=== PATIENT | female | born 1985 | race Two or more races ===

== ENCOUNTER 2023-08-20 09:15 | Inpatient (IN) | payer OTHER ==
[~2023-08-20] VITALS: Ht 149.9 cm; Wt 68.0 kg
[2023-08-20 13:29] LABS: HEMATOCRIT 36.2 % (36.0-45.00); HEMOGLOBIN 11.8 g/dL (12.0-15.00); MEAN CELL VOLUME 72.2 fL (80.00-100.00); MEAN CORPUSCULAR HEMOGLOBIN 23.6 pg (27.00-32.0); MEAN CORPUSCULAR HGB CONC 32.7 g/dl (32.0-36.0); PLATELET COUNT 309 K/uL (150-450); RED BLOOD COUNT 5.01 M/uL (4.00-6.00); RED CELL DISTRIBUTION WIDTH 16.1 % (11.5-14.5)
[2023-08-20 13:30] LABS: PH,URINE 6.5 (5.0-8.0); URINE APPEARANCE Clear; URINE BILIRRUBIN Negative (NEGATIVE); URINE BLOOD Large; URINE COLOR Yellow; URINE GLUCOSE Negative (NEGATIVE); URINE LEUKOCYTE Negative; URINE NITRATE Negative; URINE PROTEIN Negative (NEGATIVE); URINE UROBILINOGEN 0.2 E.U./dl
[2023-08-20 13:33] LABS: ALBUMIN 3.6 gm/dL (3.4-5.0); BILIRUBIN TOTAL 0.4 mg/dL (0.3-1.2); CREATININE SERUM 0.55 mg/dL (0.55-1.02); GFR 125.78; GLOBULINA 3.8 G/DL (2.4-3.5); POTASSIUM 3.82 mEq/L (3.5-5.1); TOTAL PROTEIN 7.4 gm/dL (6.4-8.2)
[2023-08-20 13:35] LABS: URINE EPITHELIAL CELLS 9.7 uL (0.0-38.8); URINE RBC 325.2 uL (0.0-20.8); URINE WBC 16.5 uL (0.0-23.2)
[2023-08-20 13:38] LABS: INR 1.01; PARTIAL THROMBOPLASTIN TIME 29.4 SECONDS (22.0-34.0); PROTHROMBIN TIME 10.6 SECONDS (9.0-11.5)
[2023-08-20 13:45] LABS: URINE BACTERIA > 9821.5 uL (0.0-1933)
[2023-08-28] MEDS ORDERED: POVIDONE-IODINE 118 ML BOTT TOP ONE (14:15)
[2023-08-28] MEDS ORDERED: VISTASEAL DUAL APPICATOR 1 EACH APPL TOP ONE (14:15)
[2023-08-28] MEDS ORDERED: METRONIDAZOLE/SODIUM CHLORIDE 500 MG/100 ML PIGGYBACK IV ONE (14:15)
[2023-08-28] MEDS ORDERED: LIDOCAINE HCL 1%/EPINEPHRINE 20ML VIAL IJ ONE (14:15)
[2023-08-28] MEDS ORDERED: THROMBIN,HU/FIBRINOGEN/CALCIUM 10 ML SYRINGE TOP ONE (14:15)
[2023-08-28] MEDS ORDERED: BUPIVACAINE HCL 30 ML VIAL IJ ONE (14:15)
[2023-08-28] MEDS ORDERED: CEFTRIAXONE SODIUM 2,000 MG VIAL IV ONE (14:15)
[2023-08-28] MEDS ORDERED: ENALAPRILAT DIHYDRATE 1.25 MG/ML VIAL IV ONE (16:45)
[2023-08-28] MEDS ORDERED: hydrALAZINE HCL 20 MG VIAL IV ONE (16:45)
[2023-08-28] MEDS ORDERED: LACTULOSE 20 G/30 ML BLIST.PACK PO SCH (21:12)
[2023-08-28] MEDS ORDERED: POLYETHYLENE GLYCOL 3350 17 GM BLIST.PACK PO SCH (21:12)
[2023-08-28] MEDS ORDERED: FAMOTIDINE/PF 20 MG/2 ML VIAL IV PUSH SCH (21:12)
[2023-08-28] MEDS ORDERED: HYOSCYAMINE SULFATE 0.125 MG TAB.SUBL SL SCH (21:12)
[2023-08-28] MEDS ORDERED: GABAPENTIN 300 MG CAPSULE PO SCH (21:13)
[2023-08-28] MEDS ORDERED: ACETAMINOPHEN 500 MG GEL..CAP PO SCH (21:13)
[2023-08-28] MEDS ORDERED: ONDANSETRON HCL 2 MG/ML VIAL IV PRN (21:15)
[2023-08-28] MEDS ORDERED: DEXTROSE 50 % IN WATER 0.5 G/ML DISP.SYRIN IV PRN (21:15)
[2023-08-28] MEDS ORDERED: RINGERS SOLUTION,LACTATED 1,000 ML IV SCH (21:15)
[2023-08-28] MEDS ORDERED: OxyCODONE HCL 5 MG TABLET (ROXICODONE) PO PRN (21:15)
[2023-08-28] MEDS ORDERED: MORPHINE SULFATE 4 MG/ML CARTRIDGE IV PRN (21:15)
[2023-08-28 23:10] LABS: HEMOGLOBIN 11.4 g/dL (12.0-15.00); MEAN CELL VOLUME 73.5 fL (80.00-100.00); MEAN CORPUSCULAR HEMOGLOBIN 23.9 pg (27.00-32.0); MEAN CORPUSCULAR HGB CONC 32.7 g/dl (32.0-36.0); PLATELET COUNT 269 K/uL (150-450); RED BLOOD COUNT 4.76 M/uL (4.00-6.00); RED CELL DISTRIBUTION WIDTH 15.9 % (11.5-14.5)
[2023-08-28 23:30] LABS: ALBUMIN 3.3 gm/dL (3.4-5.0); CALCIUM 8.3 mg/dL (8.5-10.1); CREATININE SERUM 0.88 mg/dL (0.55-1.02); GFR 73.12; MAGNESIUM 1.6 mg/dL (1.8-2.4); PHOSPHOROUS 4.4 mg/dL (2.5-4.9); POTASSIUM 3.97 mEq/L (3.5-5.1)
[2023-08-29 08:01] LABS: ALBUMIN 3.1 gm/dL (3.4-5.0); CALCIUM 8.2 mg/dL (8.5-10.1); CREATININE SERUM 0.56 mg/dL (0.55-1.02); GFR 123.19; MAGNESIUM 1.6 mg/dL (1.8-2.4)
[2023-08-29] MEDS ORDERED: MAGNESIUM SULFATE 50% 1,000 MG/2 ML VIAL IV STA (10:04)
[2023-08-29] MEDS ORDERED: MAGNESIUM SULFATE IN WATER 2 GM/50 ML PIGGYBAG IV STA ×2 (12:06→12:09)
[2023-08-29] MEDS ORDERED: SIMETHICONE 125 MG CAPSULE PO SCH (13:00)
[2023-08-30 08:43] LABS: HEMATOCRIT 28.9 % (36.0-45.00); HEMOGLOBIN 9.4 g/dL (12.0-15.00); MEAN CELL VOLUME 72.2 fL (80.00-100.00); MEAN CORPUSCULAR HEMOGLOBIN 23.5 pg (27.00-32.0); MEAN CORPUSCULAR HGB CONC 32.5 g/dl (32.0-36.0); PLATELET COUNT 211 K/uL (150-450); RED BLOOD COUNT 4.01 M/uL (4.00-6.00); RED CELL DISTRIBUTION WIDTH 16.2 % (11.5-14.5)
[2023-08-30] MEDS ORDERED: SOD FERRIC GLUC COMPLX/SUCROSE 62.5 MG/5 ML AMPUL IV SCH (09:26)
[2023-08-30] MEDS ORDERED: Cyanocobalamin/Mecobalamin 1 TAB.SL SL SCH (09:28)
[2023-08-30] MEDS ORDERED: FOLIC ACID 1 MG TABLET PO SCH (09:30)
[2023-08-30] MEDS ORDERED: LACTOBACILLUS ACIDOPHILUS 1 CAP CAP PO SCH (12:00)
[2023-08-30] MEDS ORDERED: ENOXAPARIN SODIUM 40 MG/0.4 ML SYRINGE SUBCUTANEO SCH (17:00)
[2023-08-31] MEDS ORDERED: ENOXAPARIN SODIUM 40 MG/0.4 ML SYRINGE SUBCUTANEO SCH (09:00)
[2023-08-31 12:15] LABS: HEMATOCRIT 26.5 % (36.0-45.00); MEAN CELL VOLUME 72.3 fL (80.00-100.00); MEAN CORPUSCULAR HGB CONC 32.6 g/dl (32.0-36.0); PLATELET COUNT 203 K/uL (150-450); RED BLOOD COUNT 3.67 M/uL (4.00-6.00)
[2023-08-31 12:17] LABS: MEAN CORPUSCULAR HEMOGLOBIN 23.4 pg (27.00-32.0)
[2023-08-31 12:18] LABS: HEMOGLOBIN 8.6 g/dL (12.0-15.00)
[2023-08-31 12:46] LABS: MAGNESIUM 1.8 mg/dL (1.8-2.4); PHOSPHOROUS 2.7 mg/dL (2.5-4.9)
[2023-08-31 13:08] LABS: CALCIUM 8.1 mg/dL (8.5-10.1); CREATININE SERUM 0.44 mg/dL (0.55-1.02); GFR 162.72; POTASSIUM 3.33 mEq/L (3.5-5.1)
[2023-08-31] MEDS ORDERED: POTASSIUM CHLORIDE IN WATER 100 ML IV ONE (20:45)
[2023-09-01 08:01] LABS: HEMATOCRIT 26.1 % (36.0-45.00); MEAN CELL VOLUME 73.5 fL (80.00-100.00); MEAN CORPUSCULAR HGB CONC 32.9 g/dl (32.0-36.0); PLATELET COUNT 226 K/uL (150-450); RED BLOOD COUNT 3.55 M/uL (4.00-6.00); RED CELL DISTRIBUTION WIDTH 15.7 % (11.5-14.5)
[2023-09-01 08:04] LABS: HEMOGLOBIN 8.6 g/dL (12.0-15.00); MEAN CORPUSCULAR HEMOGLOBIN 24.2 pg (27.00-32.0)
[2023-09-01] MEDS ORDERED: NEURONTIN300 MG PO (10:56)
[2023-09-01] MEDS ORDERED: LEVSIN/SL0.125 MG SL (10:57)
[2023-09-01] MEDS ORDERED: GAS RELIEF125 MG PO (10:57)
[2023-09-01] MEDS ORDERED: INTEGRA CAPSUL1 EACH PO (10:58)
== END 2023-09-01 11:17 | disposition home or self-care (01) | DRG 742 ==
LOC: O/R 08-28 07:42 → OB/GYN 08-28 10:00
PROVIDERS: Internal Medicine; Surgery; Urology; ADMIT Obstetrics & Gynecology Gynecology; ATTEND Obstetrics & Gynecology Gynecology
PROC: 0DTN4ZZ Resection of Sigmoid Colon, Percutaneous Endoscopic Approach (ICD-10-PCS; 2023-08-28)
PROC: 0DBP4ZZ Excision of Rectum, Percutaneous Endoscopic Approach (ICD-10-PCS; 2023-08-28)
PROC: 0DNP4ZZ Release Rectum, Percutaneous Endoscopic Approach (ICD-10-PCS; 2023-08-28)
PROC: 0DNN4ZZ Release Sigmoid Colon, Percutaneous Endoscopic Approach (ICD-10-PCS; 2023-08-28)
PROC: 0UN04ZZ Release Right Ovary, Percutaneous Endoscopic Approach (ICD-10-PCS; 2023-08-28)
PROC: 0DNW4ZZ Release Peritoneum, Percutaneous Endoscopic Approach (ICD-10-PCS; 2023-08-28)
PROC: 0TNB4ZZ Release Bladder, Percutaneous Endoscopic Approach (ICD-10-PCS; 2023-08-28)
PROC: 0DTJ4ZZ Resection of Appendix, Percutaneous Endoscopic Approach (ICD-10-PCS; 2023-08-28)
PROC: 0WBH4ZZ Excision of Retroperitoneum, Percutaneous Endoscopic Approach (ICD-10-PCS; 2023-08-28)
PROC: 0DJD8ZZ Inspection of Lower Intestinal Tract, Via Natural or Artificial Opening Endoscopic (ICD-10-PCS; 2023-08-28)
PROC: 0T788DZ Dilation of Bilateral Ureters with Intraluminal Device, Via Natural or Artificial Opening Endoscopic (ICD-10-PCS; 2023-08-28)
PROC: 0UT94ZZ Resection of Uterus, Percutaneous Endoscopic Approach (ICD-10-PCS; principal; 2023-08-28 11:15)
PROC: 0UT74ZZ Resection of Bilateral Fallopian Tubes, Percutaneous Endoscopic Approach (ICD-10-PCS; 2023-08-28 11:15)
PROC: 0UT24ZZ Resection of Bilateral Ovaries, Percutaneous Endoscopic Approach (ICD-10-PCS; 2023-08-28 11:15)
PROC: B54NZZZ Ultrasonography of Left Upper Extremity Veins (ICD-10-PCS; 2023-08-30)
DX: D25.1 Intramural leiomyoma of uterus (principal); D62 Acute posthemorrhagic anemia; G97.82 Other postprocedural complications and disorders of nervous system; N80.A62 Endometriosis of left ureter, unspecified depth; N80.03 Adenomyosis of the uterus; N80.519 Endometriosis of the rectum, unspecified depth; N80.529 Endometriosis of the sigmoid colon, unspecified depth; N80.30 Endometriosis of pelvic peritoneum, unspecified; N80.203 Endometriosis of bilateral fallopian tubes, unspecified depth; N80.102 Endometriosis of left ovary, unspecified depth; N72 Inflammatory disease of cervix uteri; N83.01 Follicular cyst of right ovary; N83.11 Corpus luteum cyst of right ovary; K66.0 Peritoneal adhesions (postprocedural) (postinfection); Z20.822 Contact with and (suspected) exposure to COVID-19

== ENCOUNTER 2023-09-05 20:18 | Inpatient (IN) | payer OTHER ==
[~2023-09-05] VITALS: Ht 149.9 cm; Wt 63.5 kg
[~2023-09-05 20:18] MED LIST: GAS RELIEF125 MG PO; INTEGRA CAPSUL1 EACH PO; LEVSIN/SL0.125 MG SL; NEURONTIN300 MG PO
--- NOTE | 2023-09-05 21:58 | NUR ---
SE RECIBE PACIENTE ALERTA Y ORIENTADA X3. LA MISMA REFIERE LUEGO DE OPERACION DE RESECCION DE INTESTINO HALEY Y GRUESO, HISTERECTOMIA, SALPINGECTOMIA, REMOCION DE MASAS ENDOMETRIALES Y REMOCION DE APENDICE, COMENZAR VOMITOS X3, FIEBRE, ESCALOSFRIOS, SUDORACION, Y REFLUJO. PACIENTE OPERADA POR DRA. PRAVEENA MELTON Y DR. MADAI AYON EL 3 . SE MIDEN S/V Y SE UBICA.
[2023-09-05] MEDS ORDERED: 0.9 % SODIUM CHLORIDE 1,000 ML IV STA (22:18)
[2023-09-05] MEDS ORDERED: FAMOTIDINE/PF 20 MG/2 ML VIAL IV ONE (22:30)
[2023-09-05] MEDS ORDERED: PROMETHAZINE HCL 25 MG/ML AMPUL IV ONE (22:30)
[2023-09-05] MEDS ORDERED: MEPERIDINE HCL/PF 50 MG/ML VIAL IV ONE (22:30)
[2023-09-06 00:16] LABS: ERYTHROCYTE SEDIMENTATION RATE 51 mm/hr
--- NOTE | 2023-09-06 00:16 | NUR ---
PTE EVALUADA POR DRA BRYAN. SE ORIENTA A PTE SOBRE ORDENES MEDICAS. SE COLECTAN MUESTRAS DE LABORATORIO. SE CANALIZA Y SE ADMINISTRAN MEDICAMENTOS MAYO ORDEN MEDICA. SE NOTIFICA CT PENDIENTE.
[2023-09-06 00:19] LABS: HEMATOCRIT 32.8 % (36.0-45.00); HEMOGLOBIN 10.7 g/dL (12.0-15.00); MEAN CELL VOLUME 71.9 fL (80.00-100.00); MEAN CORPUSCULAR HEMOGLOBIN 23.6 pg (27.00-32.0); MEAN CORPUSCULAR HGB CONC 32.8 g/dl (32.0-36.0); PLATELET COUNT 452 K/uL (150-450); RED BLOOD COUNT 4.56 M/uL (4.00-6.00); RED CELL DISTRIBUTION WIDTH 16.1 % (11.5-14.5)
[2023-09-06 00:59] LABS: ALBUMIN 3.5 gm/dL (3.4-5.0); BILIRUBIN TOTAL 0.25 mg/dL (0.3-1.2); CREATININE SERUM 0.64 mg/dL (0.55-1.02); GFR 105.6; GLOBULINA 4.1 G/DL (2.4-3.5); POTASSIUM 4.18 mEq/L (3.5-5.1); TOTAL PROTEIN 7.6 gm/dL (6.4-8.2)
[2023-09-06 01:23] LABS: C-REACTIVE PROTEIN 2.19 MG/DL (0.00-0.29)
[2023-09-06] MEDS ORDERED: OxyCODONE HCL/APAP UD (PERCOCET) PO STA (07:22)
--- NOTE | 2023-09-06 07:43 | NUR ---
PTE ALERTA Y ORIENTADA X3 EN CAMA CON BARANDAS ELEVADAS. SE ORIENTA DE CONTINUIDAD SOBRE CUIDADO CLINICO. IV FLUID PATENTES. PTE CONSULTADA CON PRAVEENA MELTON.
[2023-09-06] MEDS ORDERED: PANTOPRAZOLE SODIUM 40 MG/VIAL VIAL IV SCH ×2 (08:23→10:41)
[2023-09-06] MEDS ORDERED: POLYETHYLENE GLYCOL 3350 17 GM BLIST.PACK PO SCH ×2 (08:24→17:00)
[2023-09-06] MEDS ORDERED: RINGERS SOLUTION,LACTATED 1,000 ML IV SCH (08:30)
[2023-09-06] MEDS ORDERED: ONDANSETRON HCL 2 MG/ML VIAL IV PRN (08:30)
[2023-09-06] MEDS ORDERED: LACTOBACILLUS ACIDOPHILUS 1 CAP CAP PO SCH (09:00)
[2023-09-06] MEDS ORDERED: HYOSCYAMINE SULFATE 0.125 MG TAB.SUBL SL SCH (09:00)
[2023-09-06] MEDS ORDERED: SUCRALFATE 1 G TABLET PO SCH (09:00)
[2023-09-06] MEDS ORDERED: METOCLOPRAMIDE HCL 10 MG TABLET PO SCH (09:00)
[2023-09-06 11:25] LABS: ALBUMIN 3.5 gm/dL (3.4-5.0); CALCIUM 9.1 mg/dL (8.5-10.1); CREATININE SERUM 0.64 mg/dL (0.55-1.02); GFR 105.6; MAGNESIUM 2.2 mg/dL (1.8-2.4); POTASSIUM 4.2 mEq/L (3.5-5.1)
[2023-09-06 11:27] LABS: INR 1.06; PARTIAL THROMBOPLASTIN TIME 28.3 SECONDS (22.0-34.0); PROTHROMBIN TIME 11.1 SECONDS (9.0-11.5)
[2023-09-06 13:06] LABS: ob POSITIVE (NEGATIVE)
[2023-09-06 13:07] LABS: FECAL LEUKOCYTES NEGATIVE (NEGATIVE)
[2023-09-06] MEDS ORDERED: METRONIDAZOLE/SODIUM CHLORIDE 100 ML IV SCH (17:00)
[2023-09-06] MEDS ORDERED: CIPROFLOXACIN IN 5 % DEXTROSE 200 ML IV SCH (21:00)
[2023-09-06 23:23] LABS: URINE APPEARANCE Cloudy; URINE BILIRRUBIN Negative (NEGATIVE); URINE BLOOD Moderate; URINE COLOR Yellow; URINE GLUCOSE Negative (NEGATIVE); URINE LEUKOCYTE Moderate; URINE NITRATE Negative; URINE PROTEIN Negative (NEGATIVE); URINE UROBILINOGEN 0.2 E.U./dl
[2023-09-06 23:27] LABS: URINE BACTERIA 1538.3 uL (0.0-1933); URINE EPITHELIAL CELLS 59.5 uL (0.0-38.8); URINE RBC 14.3 uL (0.0-20.8); URINE WBC 164.9 uL (0.0-23.2)
[2023-09-07 08:28] LABS: MEAN CORPUSCULAR HEMOGLOBIN 24.1 pg (27.00-32.0); MEAN CORPUSCULAR HGB CONC 33.4 g/dl (32.0-36.0); PLATELET COUNT 400 K/uL (150-450); RED BLOOD COUNT 4.02 M/uL (4.00-6.00); RED CELL DISTRIBUTION WIDTH 16.4 % (11.5-14.5)
[2023-09-07 08:30] LABS: HEMOGLOBIN 9.7 g/dL (12.0-15.00); MEAN CELL VOLUME 72.1 fL (80.00-100.00)
[2023-09-07 08:52] LABS: ALBUMIN 2.9 gm/dL (3.4-5.0); CALCIUM 8.5 mg/dL (8.5-10.1); CREATININE SERUM 0.62 mg/dL (0.55-1.02); GFR 109.54; MAGNESIUM 1.9 mg/dL (1.8-2.4); PHOSPHOROUS 4.8 mg/dL (2.5-4.9); POTASSIUM 4.68 mEq/L (3.5-5.1)
[2023-09-07] MEDS ORDERED: CARAFATE1 GM PO (13:17)
[2023-09-07] MEDS ORDERED: PROTONIX40 MG PO (13:18)
[2023-09-07] MEDS ORDERED: CIPRO500 MG PO (13:18)
== END 2023-09-07 14:58 | disposition home or self-care (01) | DRG 391 ==
LOC: ER 20:19 → SURH 09-06 08:53
PROVIDERS: Emergency Medicine; Internal Medicine; ADMIT Surgery; ATTEND Surgery
PROC: BW21ZZZ Computerized Tomography (CT Scan) of Abdomen and Pelvis (ICD-10-PCS; principal; 2023-09-06)
DX: K29.70 Gastritis, unspecified, without bleeding (principal); K68.2 Retroperitoneal fibrosis; D64.9 Anemia, unspecified; R20.0 Anesthesia of skin; N80.519 Endometriosis of the rectum, unspecified depth; R11.10 Vomiting, unspecified; Z20.822 Contact with and (suspected) exposure to COVID-19; N80.103 Endometriosis of bilateral ovaries, unspecified depth